=== PATIENT | female | born 1985 | race Caucasian/White ===

== ENCOUNTER 2017-04-15 14:17 | Emergency (ER) | payer OTHER ==
[~2017-04-15] VITALS: Ht 172.7 cm; Wt 63.5 kg
[~2017-04-15 14:17] MED LIST: AMBIEN10 M1 PO; AMOXICILLIN500 M3 PO; ANUSOL-HC25 MG RC; BACTRIM DS 8001 TA1 PO; CEPHALEXIN500 M1 PO; CIPRO500 MG PO; CLARITIN-D 12 H1 TAB PO; CLEOCIN HCL300 MG PO; HYDROCODONE BIT1 T11 PO; IBU800 MG PO; LIDOCAINE VISC100 ML MM; MACROBID100 M1 PO; Motrin,Rufen800 MG PO; NORCO 5-325 TA1 EACH PO; PENICILLIN VK500 MG PO; PNV PRENATAL P1 EACH PO; Peridex 473 ML473 ML PO; TYLENOL325 M1 PO; VISTARIL25 M2 PO; XANAX1 MG PO; ZANTAC 150150 MG PO; ZITHROMAX100 MG/5 M PO
[2017-04-15] MEDS ORDERED: OMNICEF300 MG PO (15:20)
== END 2017-04-15 15:59 | disposition home or self-care (01) ==
LOC: ED 14:17
DX: H66.92 Otitis media, unspecified, left ear (principal); J02.9 Acute pharyngitis, unspecified; F17.200 Nicotine dependence, unspecified, uncomplicated; Z79.899 Other long term (current) drug therapy

== ENCOUNTER 2017-06-22 13:03 | Emergency (ER) | payer OTHER ==
[~2017-06-22] VITALS: Ht 175.2 cm; Wt 65.8 kg
[~2017-06-22 13:03] MED LIST changes: +OMNICEF300 MG PO
[2017-06-22] MEDS ORDERED: PRENATAL VITAM1 EAC4 PO (13:23)
[2017-06-22 13:37] LABS: BILIRUBIN NEGATIVE (NEGATIVE); BLOOD NEGATIVE (NEGATIVE); CLARITY SL CLOUDY (CLEAR); COLOR YELLOW (YELLOW); GLUCOSE NEGATIVE (NEGATIVE); KETONE NEGATIVE (NEGATIVE); LEUKO ESTERASE NEGATIVE (NEGATIVE); NITRITE NEGATIVE (NEGATIVE); UROBILINOGEN 0.2 E.U./dl (0.2-1.0)
[2017-06-22 13:49] LABS: BACTERIA TRACE; WBC 0-2 wbc/hpf (0-5)
== END 2017-06-22 14:20 | disposition home or self-care (01) ==
LOC: ED 13:03
PROVIDERS: Nurse Practitioner Family
DX: Z32.01 Encounter for pregnancy test, result positive (principal); F17.200 Nicotine dependence, unspecified, uncomplicated; R03.0 Elevated blood-pressure reading, without diagnosis of hypertension

== ENCOUNTER 2017-07-17 01:12 | Emergency (ER) | payer OTHER ==
[~2017-07-17] VITALS: Ht 175.2 cm; Wt 71.7 kg
[~2017-07-17 01:12] MED LIST changes: +PRENATAL VITAM1 EAC4 PO
[2017-07-17 02:01] LABS: BASO % 0.2 % (0.0-1.0); EOS # 0.1 10*3/uL (0.0-0.4); EOS % 1.1 % (1.0-4.0); HEMATOCRIT 36.4 % (37.0-47.0); HEMOGLOBIN 12.1 g/dl (12.0-16.0); LYMPH # 3.1 10*3/uL (1.3-4.4); LYMPH % 33.4 % (27.0-41.0); MEAN CELL VOLUME 89.9 fl (81.0-99.0); MEAN CORPUSCULAR HGB 29.9 pg (27.0-31.0); MEAN CORPUSCULAR HGB CONC 33.2 g/dl (33.0-37.0); MEAN PLATELET VOLUME 11.3 fl (9.6-12.3); MONO # 0.5 10*3/uL (0.1-1.0); MONO % 5.3 % (3.0-9.0); NEUT # 5.5 10*3/uL (2.3-7.9); NEUT % 59.7 % (47.0-73.0); PLATELET COUNT AUTOMATED 152 10*3/uL (130-400); RED BLOOD COUNT 4.05 10*6/uL (4.10-5.10); RED CELL DISTRI WIDTH 13.2 % (0-14.5); WHITE BLOOD COUNT 9.2 10*3/uL (4.8-10.8)
[2017-07-17 02:06] LABS: BILIRUBIN NEGATIVE (NEGATIVE); BLOOD NEGATIVE (NEGATIVE); CLARITY CLEAR (CLEAR); COLOR YELLOW (YELLOW); GLUCOSE NEGATIVE (NEGATIVE); KETONE NEGATIVE (NEGATIVE); LEUKO ESTERASE NEGATIVE (NEGATIVE); NITRITE NEGATIVE (NEGATIVE); PH 6.5 (5.0-9.0)
[2017-07-17 02:15] LABS: URINE AMPHETAMINES < 1000 (1000ng/ml); URINE BARBITURATES < 200 (200ng/ml); URINE BENZODIAZEPINES > 200 (200ng/ml); URINE CANNABINOIDS (THC) > 50 (50ng/ml); URINE COCAINE < 300 (300ng/ml); URINE METHADONE < 300 (300ng/ml); URINE OPIATES < 300 (300ng/ml)
[2017-07-17 02:20] LABS: ALBUMIN 3.1 gm/dl (3.1-4.5); ALKALINE PHOSPHATASE 69 U/L (45-117); BUN 14 mg/dl (7-24); CHLORIDE 107 mmol/L (98-107); POTASSIUM 3.9 mmol/L (3.5-5.1); SGOT/AST 10 IU/L (3-35); SGPT/ALT 11 U/L (12-78); SODIUM 139 mmol/L (136-145); TOTAL PROTEIN 6.9 gm/dL (6.4-8.2)
[2017-07-17 02:20] LABS: URINE PHENCYCLIDINE < 25 (25ng/ml)
[2017-07-17] MEDS ORDERED: PRENATAL + DHA1 EAC1 PO (02:32)
[2017-07-17 02:39] LABS: RBC 0-2 rbc/hpf (0-2)
[2017-07-17 02:40] LABS: WBC 0-2 wbc/hpf (0-5)
== END 2017-07-17 07:06 | disposition home or self-care (01) ==
LOC: ED 01:12
PROVIDERS: Physician Assistant
DX: O9A.212 Injury, poisoning and certain other consequences of external causes complicating pregnancy, second trimester (principal); R10.31 Right lower quadrant pain; M25.561 Pain in right knee; O99.332 Smoking (tobacco) complicating pregnancy, second trimester; F17.200 Nicotine dependence, unspecified, uncomplicated; Z3A.19 19 weeks gestation of pregnancy; Z98.890 Other specified postprocedural states; Z79.899 Other long term (current) drug therapy; W10.9XXA Fall (on) (from) unspecified stairs and steps, initial encounter; Y93.89 Activity, other specified; Y92.009 Unspecified place in unspecified non-institutional (private) residence as the place of occurrence of the external cause; Y99.9 Unspecified external cause status

== ENCOUNTER 2018-03-23 13:18 | Emergency (ER) | payer OTHER ==
[~2018-03-23] VITALS: Ht 175.2 cm; Wt 63.5 kg
[~2018-03-23 13:18] MED LIST changes: +PRENATAL + DHA1 EAC1 PO
[2018-03-23] MEDS ORDERED: PENICILLIN-VK500 MG PO (13:58)
[2018-03-23] MEDS ORDERED: NAPROSYN500 MG PO (13:58)
[2018-04-16] MEDS ORDERED: CLINDAMYCIN HC300 MG PO (13:25)
== END 2018-03-23 14:25 | disposition home or self-care (01) ==
LOC: ED 13:18
DX: K02.9 Dental caries, unspecified (principal); Z98.890 Other specified postprocedural states; Z79.899 Other long term (current) drug therapy